=== PATIENT | male | born 1985 | race Caucasian/White ===

== ENCOUNTER 2018-12-21 21:44 | Emergency (ER) | payer OTHER, MEDICAID ==
[~2018-12-21] VITALS: Ht 182.9 cm; Wt 66.0 kg
[2018-12-21] MEDS ORDERED: FAMOTIDINE 20MG TABLET PO ONE (22:45)
[2018-12-21] MEDS ORDERED: DICYCLOMINE HCL 10MG CAPSULE PO ONE (22:45)
[2018-12-21 22:55] LABS: BASOPHILS % 0.2 % (0.0-2.0); EOSINOPHILS % 0.3 % (0.0-5.0); HEMATOCRIT. 44.5 % (42.0-52.0); LYMPHOCYTES % 7.1 % (20.0-50.0); MEAN CORPUSCULAR HEMOGLOBIN 29.8 pg (28.0-32.0); MEAN CORPUSCULAR VOLUME 88.7 fL (80.0-94.0); MEAN PLATELET VOLUME 10.5 fl (7.4-10.4); MONOCYTES % 7.1 % (2.0-8.0); NEUTROPHILS % 85.3 % (40.0-76.0); PLATELET 201 x1000/uL (130-400); RED BLOOD CELL COUNT 5.02 mill/uL (4.7-6.1)
[2018-12-21 22:59] LABS: CHLORIDE 106 mEq/L (98-107)
[2018-12-21 23:56] LABS: CLARITY URINE CLEAR (CLEAR); COLOR URINE DARK YELLOW (YELLOW); KETONES URINE 1+ (NEGATIVE); LEUKOCYTE ESTERASE URINE TRACE (NEGATIVE); NITRITE URINE NEGATIVE (NEGATIVE); OCCULT BLOOD URINE NEGATIVE (NEGATIVE); PROTEIN URINE NEGATIVE (NEGATIVE); SPECIFIC GRAVITY URINE 1.032 (1.005-1.030)
[2018-12-22] MEDS ORDERED: HYDROCODONE/ACETAMINOPHEN 5/325MG TABLET PO ONE
[2018-12-22] MEDS ORDERED: ONDANSETRON 4MG ODT PO ONE
[2018-12-22] MEDS ORDERED: NA PHOS,M-B/NA PHOS,DI-BA ENEMA 118ML PR ONE (00:15)
[2018-12-22] MEDS ORDERED: DOCUSATE SODIUM SUGAR FREE 100MG/10ML UDC NG ONE (01:30)
[2018-12-22] MEDS ORDERED: DOCUSATE SODIUM 100MG CAPSULE PO SCH (02:00)
[2018-12-22 02:30] VITALS: BP 146/65
== END 2018-12-22 02:32 | disposition home or self-care (01) ==
LOC: ER 21:44
DX: R10.0 Acute abdomen (principal); K59.00 Constipation, unspecified
CPT/HCPCS: 36415; 74018; 80053; 81003; 83690; 85025; 99284; Q0162